=== PATIENT | male | born 1935 ===

== ENCOUNTER 2021-05-27 08:00 | Outpatient (CLI) | payer OTHER | END 2021-05-27 08:30 | disposition home or self-care (01) | LOC: PPH VACUNA 08:00 | DX: Z23 Encounter for immunization (principal) ==

== ENCOUNTER 2021-06-08 11:30 | Inpatient (IN) | payer OTHER ==
[~2021-06-08] VITALS: Ht 172.7 cm; Wt 68.5 kg
[2021-06-08] MEDS ORDERED: ZYLOPRIM100 M1 PO (14:44)
[2021-06-08] MEDS ORDERED: LEVO-T50 MCG PO (14:45)
[2021-06-08] MEDS ORDERED: CRESTOR20 MG PO (14:45)
[2021-06-08] MEDS ORDERED: COZAAR50 MG PO (14:45)
[2021-06-08] MEDS ORDERED: TOPROL XL25 M1 PO (14:45)
[2021-06-08] MEDS ORDERED: ADULT LOW DOSE81 M1 PO (14:46)
[2021-06-08] MEDS ORDERED: [UNRECOGNIZED DRUG - SUPPLY] (14:46)
[2021-06-08] MEDS ORDERED: PLAVIX75 MG PO (14:46)
[2021-06-08] MEDS ORDERED: PRESERVISION A1 EAC1 PO (14:47)
[2021-06-16] MEDS ORDERED: HYOSCYAMINE0.125 M1 SL (11:43)
[2021-06-16] MEDS ORDERED: ULTRACET PO (11:43)
[2021-06-16] MEDS ORDERED: PROTONIX40 MG PO (11:44)
== END 2021-06-16 12:19 | disposition home or self-care (01) | DRG 331 ==
LOC: O/R 06-13 06:00 → SURH 06-13 10:15 → O/R 06-13 13:29 → SURH 06-14 13:51
PROVIDERS: ADMIT Surgery; ATTEND Surgery
PROC: 0DTF4ZZ Resection of Right Large Intestine, Percutaneous Endoscopic Approach (ICD-10-PCS; principal; 2021-06-13 10:15)
DX: C18.2 Malignant neoplasm of ascending colon (principal); E55.9 Vitamin D deficiency, unspecified; I13.10 Hypertensive heart and chronic kidney disease without heart failure, with stage 1 through stage 4 chronic kidney disease, or unspecified chronic kidney disease; N18.31 Chronic kidney disease, stage 3a; D50.0 Iron deficiency anemia secondary to blood loss (chronic); R59.0 Localized enlarged lymph nodes